=== PATIENT | female | born 2000 | race American Indian/Alaskan Native ===

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

== ENCOUNTER 2018-03-10 20:26 | Emergency (ER) | payer MEDICAID ==
[2018-03-10 20:52] VITALS: BP 146/78
[2018-03-10] MEDS ORDERED: Clindamycin HCl 150 MG Cap PO ONE (21:06)
[2018-03-10] MEDS ORDERED: traMADol 50 MG Tab PO ONE (21:06)
--- NOTE | 2018-03-10 21:11 | EDM.PDOC ---
ED HPI GENERAL MEDICAL PROBLEM - General Chief Complaint: Skin Complaint Stated Complaint: ABSCESS [id number] Time Seen by Provider: 03/10/18 21:07 Source of Information: Reports: Patient History Limitations: Reports: No Limitations - History of Present Illness INITIAL COMMENTS - FREE TEXT/NARRATIVE: c/o 2 days h/o painful abscess left upper arm Left Arm Pain Score (Numeric/FACES): 4 - Related Data Allergies Allergy/AdvReac Type Severity Reaction Status Date / Time No Known Allergies Allergy Verified 03/10/18 21:04 Home Meds: Home Meds . 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 Musculoskeletal History: Reports: None Neurological History: Reports: None Psychiatric History: Reports: None Endocrine/Metabolic History: Reports: None, Obesity/BMI 30+ Hematologic History: Reports: None Immunologic History: Reports: None Oncologic (Cancer) History: Reports: None Dermatologic History: Reports: None - Infectious Disease History Infectious Disease History: Reports: None - Past Surgical History HEENT Surgical History: Reports: None Cardiovascular Surgical History: Reports: None GI Surgical History: Reports: None Female Surgical History: Reports: Oophorectomy Other Female Surgeries/Procedures: left oophorectomy Oncologic Surgical History: Reports: None Social & Family History - Family History Family Medical History: Noncontributory - Tobacco Use Smoking Status *Q: Never Smoker - Caffeine Use Caffeine Use: Reports: Soda - Recreational Drug Use Recreational Drug Use: No ED ROS GENERAL - Review of Systems Review Of Systems: ROS reveals no pertinent complaints other than HPI. ED EXAM, SKIN/RASH Exam: See Below Exam Limited By: No Limitations General Appearance: Alert, WD/WN, Mild Distress, Other (tearful) Ears: Hearing Grossly Normal Throat/Mouth: Normal Voice, No Airway Compromise Head: Atraumatic, Normocephalic Neck: Non-Tender, Full Range of Motion Respiratory/Chest: No Respiratory Distress Cardiovascular: Regular Rate, Rhythm GI/Abdominal: Soft, Non-Tender Extremities: Other (left posterior upper arm 1/4" size tender firm mild local erythema without lymphangitis, NV wnl) Neurological: Alert, Oriented, Normal Cognition, Normal Gait, No Motor/Sensory Deficits Psychiatric: Tearful Skin: Warm, Dry, Normal Color Location, Skin: Upper Extremity, Left Associated features: Tenderness, Swelling, Inflammation. No: Lymphangitis Lymphatic: No Adenopathy Course - Vital Signs Last Recorded V/S: Last Vital Signs Temp 36.8 C 03/10/18 20:50 Pulse 85 03/10/18 20:50 Resp 18 03/10/18 20:50 BP 146/78 H 03/10/18 20:50 Pulse Ox 100 03/10/18 20:50 - Orders/Labs/Meds Orders: Active Orders 24 hr Category Date Time Status Clindamycin HCl [Cleocin] Med 03/10/18 21:06 Once 150 mg PO ONETIME ONE traMADol [Ultram] Med 03/10/18 21:06 Once 50 mg PO ONETIME ONE Medication Orders Clindamycin HCl (Cleocin) 150 mg PO ONETIME ONE Stop: 03/10/18 21:07 Tramadol HCl (Ultram) 50 mg PO ONETIME ONE Stop: 03/10/18 21:07 Meds: Medications Generic Name Dose Route Start Last Admin Trade Name Freq PRN Reason Stop Dose Admin Clindamycin HCl 150 mg 03/10/18 21:06 Cleocin PO 03/10/18 21:07 ONETIME ONE Tramadol HCl 50 mg 03/10/18 21:06 Ultram PO 03/10/18 21:07 ONETIME ONE Departure - Departure Time of Disposition: 21:10 Disposition: Home, Self-Care 01 Condition: Good Clinical Impression: Abscess - Discharge Information Instructions: Skin Abscess, [id number] Additional Instructions: 1) try heat pad to abscess 2) keep it covered 3) follow up at clinic rx given; clindamycin 150mg qid x 40 tramadol 50 mg daily prn x 4 - My Orders Last 24 Hours: My Active Orders 03/10/18 21:06 Clindamycin HCl [Cleocin] 150 mg PO ONETIME ONE traMADol [Ultram] 50 mg PO ONETIME ONE - Assessment/Plan Last 24 Hours: My Active Orders 03/10/18 21:06 Clindamycin HCl [Cleocin] 150 mg PO ONETIME ONE traMADol [Ultram] 50 mg PO ONETIME ONE
== END 2018-03-10 21:20 | disposition home or self-care (01) ==
LOC: DL.ED 20:26
DX: L02.414 Cutaneous abscess of left upper limb (principal)
CPT/HCPCS: 99282; A9270

== ENCOUNTER 2018-12-12 02:51 | Emergency (ER) | payer MEDICAID, OTHER ==
--- NOTE | 2018-12-12 03:46 | EDM.PDOC ---
ED HPI GENERAL MEDICAL PROBLEM - General Chief Complaint: ENT Problem Stated Complaint: COLD [id number] Time Seen by Provider: 12/12/18 03:40 Source of Information: Reports: Patient, RN Notes Reviewed History Limitations: Reports: No Limitations - History of Present Illness INITIAL COMMENTS - FREE TEXT/NARRATIVE: c/o cold sx x one week, some cough, possible fever tonight. No nausea or vomiting No body aches No sore throat. 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 Musculoskeletal History: Reports: None Neurological History: Reports: None Psychiatric History: Reports: None Endocrine/Metabolic History: Reports: None, Obesity/BMI 30+ Hematologic History: Reports: None Immunologic History: Reports: None Oncologic (Cancer) History: Reports: None Dermatologic History: Reports: None - Infectious Disease History Infectious Disease History: Reports: None - Past Surgical History HEENT Surgical History: Reports: None Cardiovascular Surgical History: Reports: None GI Surgical History: Reports: None Female Surgical History: Reports: Oophorectomy Other Female Surgeries/Procedures: left oophorectomy Oncologic Surgical History: Reports: None Social & Family History - Family History Family Medical History: Noncontributory - Caffeine Use Caffeine Use: Reports: Soda ED ROS ENT - Review of Systems Review Of Systems: ROS reveals no pertinent complaints other than HPI. ED EXAM, ENT - Physical Exam Exam: See Below Exam Limited By: No Limitations General Appearance: Alert, No Apparent Distress, Obese Eye Exam: Bilateral Eye: EOMI Ears: Normal External Exam, Hearing Grossly Normal, TM Fluid. No: TM Bulging, TM Erythema Nose: Normal Inspection, Normal Mucousa. No: Nasal Tenderness Mouth/Throat: Normal Inspection, Normal Oropharynx. No: Muffled Voice, Tonsillar Erythema, Uvular Deviation Head: Atraumatic, Normocephalic Neck: Normal Inspection, Supple, Non-Tender, Full Range of Motion. No: Lymphadenopathy (L), Lymphadenopathy (R) Cardiovascular: Normal Peripheral Pulses, Regular Rate, Rhythm GI/Abdominal: Normal Bowel Sounds Neurological: Alert, Oriented, Normal Cognition Psychiatric: Normal Affect Skin: Warm, Dry, Intact, Normal Color Course - Vital Signs Last Recorded V/S: Last Vital Signs Temp 97.5 F 12/12/18 03:31 Pulse 131 H 12/12/18 03:31 Resp 18 12/12/18 03:31 BP 137/93 H 12/12/18 03:31 Pulse Ox 99 12/12/18 03:31 Departure - Departure Time of Disposition: 03:41 Disposition: Home, Self-Care 01 Condition: Good Clinical Impression: URI (upper respiratory infection) Qualifiers: URI type: unspecified viral URI Qualified Code(s): J06.9 - Acute upper respiratory infection, unspecified - Discharge Information *PRESCRIPTION DRUG MONITORING PROGRAM REVIEWED*: No *COPY OF PRESCRIPTION DRUG MONITORING REPORT IN PATIENT RICCO: No Instructions: Viral Respiratory Infection Additional Instructions: alternate tylenol and ibuprofen every 4 hours as needed for fever/discomfort humidification over counter cough and cold medication per label instructions increase fluid intake follow up as needed
== END 2018-12-12 04:02 | disposition home or self-care (01) ==
LOC: DL.ED 02:51
DX: J06.9 Acute upper respiratory infection, unspecified (principal)
CPT/HCPCS: 99282

== ENCOUNTER 2018-12-12 20:17 | Emergency (ER) | payer MEDICAID, OTHER ==
[2018-12-12] MEDS ORDERED: Ibuprofen 600 MG Tab PO ONE (20:28)
[2018-12-12] MEDS ORDERED: Amoxicillin 500 MG Cap PO ONE (20:28)
[2018-12-12 20:29] VITALS: BP 144/85; PULSE 142
--- NOTE | 2018-12-12 20:32 | EDM.PDOC ---
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 Musculoskeletal History: Reports: None Neurological History: Reports: None Psychiatric History: Reports: None Endocrine/Metabolic History: Reports: None, Obesity/BMI 30+ Hematologic History: Reports: None Immunologic History: Reports: None Oncologic (Cancer) History: Reports: None Dermatologic History: Reports: None - Infectious Disease History Infectious Disease History: Reports: None - Past Surgical History HEENT Surgical History: Reports: None Cardiovascular Surgical History: Reports: None GI Surgical History: Reports: None Female Surgical History: Reports: Oophorectomy Other Female Surgeries/Procedures: left oophorectomy Oncologic Surgical History: Reports: None Social & Family History - Family History Family Medical History: Noncontributory - Caffeine Use Caffeine Use: Reports: Soda ED ROS GENERAL - Review of Systems Review Of Systems: ROS reveals no pertinent complaints other than HPI. ED EXAM, GENERAL - Physical Exam Exam: See Below Exam Limited By: No Limitations General Appearance: Alert, WD/WN, No Apparent Distress Ears: Normal External Exam, Normal Canal, Hearing Grossly Normal Ear Exam: Bilateral Ear: TM Dull, TM Red (right >) Throat/Mouth: Normal Voice, No Airway Compromise Head: Atraumatic Neck: Non-Tender, Full Range of Motion Respiratory/Chest: No Respiratory Distress Cardiovascular: Regular Rate, Rhythm GI/Abdominal: Soft, Non-Tender Neurological: Alert, Oriented, Normal Cognition, Normal Gait, No Motor/Sensory Deficits Psychiatric: Normal Affect, Normal Mood Skin Exam: Warm, Dry, Normal Color Lymphatic: No Adenopathy Course - Vital Signs Last Recorded V/S: Last Vital Signs Temp 40.1 C H 12/12/18 20:27 Pulse 142 H 12/12/18 20:27 Resp 18 12/12/18 20:27 BP 144/85 H 12/12/18 20:27 Pulse Ox 97 12/12/18 20:27 - Orders/Labs/Meds Orders: Active Orders 24 hr Category Date Time Status Amoxicillin [Amoxil] Med 12/12/18 20:28 Once 500 mg PO ONETIME ONE Ibuprofen [Motrin] Med 12/12/18 20:28 Once 600 mg PO ONETIME ONE Medication Orders Amoxicillin (Amoxil) 500 mg PO ONETIME ONE Stop: 12/12/18 20:29 Ibuprofen (Motrin) 600 mg PO ONETIME ONE Stop: 12/12/18 20:29 Meds: Medications Generic Name Dose Route Start Last Admin Trade Name Freq PRN Reason Stop Dose Admin Amoxicillin 500 mg 12/12/18 20:28 Amoxil PO 12/12/18 20:29 ONETIME ONE Ibuprofen 600 mg 12/12/18 20:28 Motrin PO 12/12/18 20:29 ONETIME ONE Departure - Departure Time of Disposition: 20:30 Disposition: Home, Self-Care 01 Condition: Good Clinical Impression: Bilateral otitis media with effusion - Discharge Information Instructions: Otitis Media With Effusion, Pediatric Additional Instructions: 1) try decongestant from [facility] 2) follow up at clinic rx given; amox 250mg tid x 30 - My Orders Last 24 Hours: My Active Orders 12/12/18 20:28 Amoxicillin [Amoxil] 500 mg PO ONETIME ONE Ibuprofen [Motrin] 600 mg PO ONETIME ONE - Assessment/Plan Last 24 Hours: My Active Orders 12/12/18 20:28 Amoxicillin [Amoxil] 500 mg PO ONETIME ONE Ibuprofen [Motrin] 600 mg PO ONETIME ONE
== END 2018-12-12 20:39 | disposition home or self-care (01) ==
LOC: DL.ED 20:17
DX: H65.93 Unspecified nonsuppurative otitis media, bilateral (principal); J06.9 Acute upper respiratory infection, unspecified
CPT/HCPCS: 99282; 99283; A9270

== ENCOUNTER 2018-12-14 14:59 | Emergency (ER) | payer MEDICAID, OTHER | END 2018-12-14 15:05 | LOC: DL.ED 14:59 | DX: Z53.21 Procedure and treatment not carried out due to patient leaving prior to being seen by health care provider (principal) ==

== ENCOUNTER 2019-09-16 14:39 | Emergency (ER) | payer MEDICAID, OTHER | END 2019-09-16 16:02 | disposition left against medical advice (07) | LOC: DL.ED 14:39 | DX: Z53.21 Procedure and treatment not carried out due to patient leaving prior to being seen by health care provider (principal) ==

== ENCOUNTER 2020-05-11 08:15 | Inpatient (IN) | payer MEDICAID ==
[2020-05-11] MEDS ORDERED: Sodium Chloride 0.9% 10 ML Syringe FLUSH PRN (08:18)
[2020-05-11] MEDS ORDERED: Acetaminophen 325 MG Tab PO PRN ×2 (08:18→17:57)
[2020-05-11] MEDS ORDERED: Oxytocin/Normal Saline 30 UNIT/500 ML BAG IV SCH ×2 (08:30→18:00)
[2020-05-11] MEDS ORDERED: Lactated Ringers 1,000 ML IV SCH (08:30)
[2020-05-11] MEDS: Misoprostol 25 MCG (1/4 of 100 MCG) Tab VAG PRN ×3 (09:27→20:25)
--- NOTE | 2020-05-11 10:44 | PCM.LDHP ---
L&D History of Present Illness - General Date of Service: 05/11/20 Admit Problem/Dx: Patient Status Order with Admit Dx/Problem 05/11/20 08:19 Patient Status [ADT] Routine Admission Diagnosis/Problem Admission Diagnosis/Problem Gestational diabetes mellitus - History of Present Illness Introduction:: Patient is a at 39w0d who is here for induction of labor secondary to gestational diabetes. She has been on 1000 mg Metformin BID. Her blood sugars have been well controlled throughout . Her growth ultrasounds have been appropriate. She is GBS positive. has otherwise been uncomplicated. She states that bay has been active. Denies contractions, vaginal bleeding, leakage of fluids. She has noticed some increased edema in her lower extremities but denies headache, vision changes, abdominal pain. She only has one ovary (right). She had a left sided ovarian torsion and ovary was removed. No drug, alcohol, or tobacco use during the . 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: Other OB/BYN History: Left ovarian torsion and oophorectomy Musculoskeletal History: Reports: None Neurological History: Reports: None Psychiatric History: Reports: None Endocrine/Metabolic History: Reports: None, Obesity/BMI 30+ Hematologic History: Reports: Anemia Immunologic History: Reports: None Oncologic (Cancer) History: Reports: None Dermatologic History: Reports: None - Infectious Disease History Infectious Disease History: Reports: None - Past Surgical History HEENT Surgical History: Reports: Adenoidectomy, Tonsillectomy Cardiovascular Surgical History: Reports: None GI Surgical History: Reports: None Female Surgical History: Reports: Oophorectomy Other Female Surgeries/Procedures: left oophorectomy Oncologic Surgical History: Reports: None Social & Family History - Family History Family Medical History: Noncontributory Cardiac: Reports: Hypertension Endocrine/Metabolic: Reports: Diabetes, type II - Tobacco Use Smoking Status *Q: Never Smoker Second Hand Smoke Exposure: No - Caffeine Use Caffeine Use: Reports: Soda - Alcohol Use Alcohol Use History: No - Recreational Drug Use Recreational Drug Use: No H&P Review of Systems - Review of Systems: Review Of Systems: See Below General: Denies: Fever, Chills, Weakness HEENT: Denies: Headaches, Visual Changes Pulmonary: Denies: Shortness of Breath, Cough Cardiovascular: Reports: Edema. Denies: Chest Pain, Lightheadedness Gastrointestinal: Denies: Abdominal Pain, Nausea, Vomiting Skin: Denies: Rash Neurological: Denies: Dizziness, Headache, Numbness Hematologic/Lymphatic: Reports: Anemia L&D Exam - Exam Exam: See Below - Vital Signs Vital Signs: Last Vital Signs Temp 98.4 F 05/11/20 09:00 Pulse 88 05/11/20 09:00 Resp 18 05/11/20 09:00 BP 132/70 05/11/20 09:00 Pulse Ox Weight: 309 lb - OB Specific Contraction Duration (sec): 40-50 Contraction Frequency (min): occ. Contraction Intensity: Mild Movement: Active Heart Tones: Present Heart Tones per Min: 135 Heart Rate (FHR) Variability: Moderate (6-25 bmp) Presentation: Vertex - Phillips Score Phillips Score Cervix Position: Anterior Phillips Score Consistency: Firm Phillips Score Dilation: Closed Phillips Score Infant's Station: -3 - Exam General: Alert, Oriented HEENT: Conjunctiva Clear, Pupils Equal Neck: Supple, Trachea Midline Lungs: Clear to Auscultation, Normal Respiratory Effort Cardiovascular: Regular Rate, Regular Rhythm, Normal S1, Normal S2 GI/Abdominal Exam: Soft, Non-Tender, No Distention Extremities: Non-Tender, Pedal Edema (2+) Skin: Warm, Dry, Intact Neurological: Reflexes Equal Bilateral. No: Focal Deficit Psychiatric: Normal Affect, Normal Mood - Patient Data Lab Results Last 24 hrs: Laboratory Results - last 24 hr 05/11/20 05/11/20 Range/Units 08:30 09:10 WBC 9.7 (5.0-10.0) 10^3/uL RBC 4.36 (4.2-5.4) 10^6/uL Hgb 12.2 (12.0-16.0) g/dL Hct 36.0 L (37.0-47.0) % MCV 82.6 (80-100) fL MCH 28.0 (27.0-34.0) pg MCHC 33.9 (33.0-35.0) g/dL Plt Count 244 (150-450) 10^3/uL SARS CoV-2 RNA Rapid AMY Negative (NEGATIVE) Result Diagrams: 05/11/20 09:10 - Problem List (1) Gestational diabetes SNOMED Code(s): 59183701 ICD Code: O24.419 - GESTATIONAL DIABETES MELLITUS IN , UNSP CONTROL Status: Acute Current Visit: Yes (2) Rubella non-immune status, antepartum SNOMED Code(s): 095374423 ICD Code: O99.89 - OTH DISEASES AND CONDITIONS COMPL PREG/CHLDBRTH; Z28.3 - UNDERIMMUNIZATION STATUS Status: Acute Current Visit: Yes (3) Anemia affecting SNOMED Code(s): 60490033 ICD Code: O99.019 - ANEMIA COMPLICATING , UNSPECIFIED TRIMESTER Status: Acute Current Visit: Yes (4) Obesity affecting SNOMED Code(s): 471951891691, 476016510476 ICD Code: O99.210 - OBESITY COMPLICATING , UNSPECIFIED TRIMESTER Status: Acute Current Visit: Yes (5) Positive GBS test SNOMED Code(s): 816992354, 496901955 ICD Code: B95.1 - STREPTOCOCCUS, GROUP B, CAUSING DISEASES CLASSD ELSWHR Status: Acute Current Visit: Yes (6) Primigravida SNOMED Code(s): 678587135 ICD Code: Z34.00 - ENCNTR FOR SUPRVSN OF NORMAL FIRST , UNSP TRIMESTER Status: Acute Current Visit: Yes Problem List Initiated/Reviewed/Updated: Yes Orders Last 24hrs: Active Orders 24 hr Category Date Time Status Patient Status [ADT] Routine ADT 05/11/20 08:19 Active Blood Glucose Check, Bedside [RC] ONETIME Care 05/11/20 08:21 Active Notify Provider Vital Signs OB [RC] ASDIRECTED Care 05/11/20 08:19 Active Notify Provider [RC] PRN Care 05/11/20 08:19 Active Peripheral IV Care [RC] 06,14, Care 05/11/20 08:19 Active Up ad Shanice [RC] PER UNIT ROUTINE Care 05/11/20 08:19 Active Vaginal Exam [RC] PRN Care 05/11/20 08:19 Active Vital Signs [RC] PER UNIT ROUTINE Care 05/11/20 08:19 Active Consistent Carbohydrate Diet [DIET] Diet 05/11/20 Breakfast Active TREPONEMA PALLIDUM ANTIBODIES [REF] Routine Lab 05/11/20 09:10 Received Acetaminophen [TylenoL] Med 05/11/20 08:18 Active 650 mg PO Q4H PRN Lactated Ringers [Ringers, Lactated] 1,000 ml Med 05/11/20 08:30 Active IV ASDIRECTED Oxytocin/Normal Saline [Pitocin in NS 30 UNIT/500 ML] Med 05/11/20 08:30 Active 30 unit in 500 ml IV TITRATE Sodium Chloride 0.9% [Saline Flush] Med 05/11/20 08:18 Active 10 ml FLUSH ASDIRECTED PRN miSOPROStoL [Cytotec] Med 05/11/20 08:18 Active 25 mcg VAG Q4H PRN Peripheral IV Insertion Adult [OM.PC] Urgent Oth 05/11/20 08:19 Ordered Medication Orders Acetaminophen (Tylenol) 650 mg PO Q4H PRN PRN Reason: Pain/Fever Lactated Ringer's (Ringers, Lactated) 1,000 mls @ 999 mls/hr IV ASDIRECTED JESI Oxytocin/Sodium Chloride (Pitocin In Ns 30 Unit/500 Ml) 30 unit in 500 mls @ 2 mls/hr IV TITRATE JESI; Protocol Misoprostol (Cytotec) 25 mcg VAG Q4H PRN PRN Reason: cervical ripening Last Admin: 05/11/20 09:27 Dose: 25 mcg Documented by: ERICROX Sodium Chloride (Saline Flush) 10 ml FLUSH ASDIRECTED PRN PRN Reason: Keep Vein Open Assessment/Plan Comment:: Admit for induction of labor. Risks/benefits of Cytotec induction discussed. Will proceed with up to 8 doses if appropriate. GBS positive, will receive penicillin. Will start when it appears cervix is changing. Blood sugar checks fasting and 2 hour post prandial while receiving cytotec. Patient may have hydroxyzine at night, tylenol for cramping. Corry Macias MD
[2020-05-11] MEDS ORDERED: Ondansetron 4 MG/2 ML SDV IVPUSH PRN (17:57)
[2020-05-11] MEDS ORDERED: Lidocaine 1% 30 ML SDV INJECT PRN (17:57)
[2020-05-11] MEDS ORDERED: Tranexamic Acid 1,000 MG in Sodium Chloride 0.9% 100 ML IV PRN (17:57)
[2020-05-11] MEDS ORDERED: Misoprostol 400 MCG (4 X 100 MCG TAB) RECTAL PRN (17:57)
[2020-05-11] MEDS ORDERED: Penicillin G Potassium 5 MILLUNITS in Sodium Chloride 0.9% 100 ML IV ONE ×4 (17:57)
[2020-05-11] MEDS ORDERED: Methylergonovine 0.2 MG/1 ML Amp IM PRN (17:57)
[2020-05-11] MEDS ORDERED: Carboprost Tromethamine 250 MCG/1 ML Amp IM PRN (17:57)
[2020-05-11] MEDS ORDERED: Penicillin G Potassium 3 MILLUNITS in Sodium Chloride 0.9% 100 ML IV SCH (18:00)
[2020-05-11] MEDS: Lactated Ringers 1,000 ML IV SCH (18:28)
[2020-05-11] MEDS: hydrOXYzine HCl 25 MG Tab PO PRN (21:00)
[2020-05-11] MEDS: Penicillin G Potassium 3 MILLUNITS in Sodium Chloride 0.9% 100 ML IV SCH (22:21)
[2020-05-12] MEDS: Misoprostol 25 MCG (1/4 of 100 MCG) Tab VAG PRN ×4 (00:38→12:40)
[2020-05-12] MEDS: Penicillin G Potassium 3 MILLUNITS in Sodium Chloride 0.9% 100 ML IV SCH ×6 (02:16→21:40)
[2020-05-12] MEDS: Lactated Ringers 1,000 ML IV SCH ×3 (02:17→23:30)
--- NOTE | 2020-05-12 15:50 | PCM.SN.2 ---
- Free Text/Narrative Note: 05/12/20 Patient continues to receive cytotec. Total of 7 doses now given. She has been feeling cramping but still comfortable. Baby has had cat 1 strip throughout the process. Will plan to start pitocin after 7th dose along with penicillin for GBS positive status. Pain options have been discussed. Continue intra cares. Blood sugars have been well controlled. Will change to NPO once pitocin is started. Corry Macias MD
[2020-05-12] MEDS ORDERED: Naloxone 2 MG/2 ML Syringe IVPUSH PRN (20:20)
[2020-05-12] MEDS ORDERED: ePHEDrine 50 MG/ML SDV IVPUSH PRN (20:20)
[2020-05-12] MEDS ORDERED: Lactated Ringers 500 ML IV SCH ×2 (20:30)
[2020-05-12] MEDS ORDERED: Sodium Chloride 0.9% 1,000 ML IV SCH (20:30)
[2020-05-12] MEDS: hydrOXYzine HCl 25 MG Tab PO PRN (21:38)
[2020-05-12] MEDS: Ondansetron 4 MG/2 ML SDV IVPUSH PRN (22:26)
[2020-05-12] MEDS ORDERED: fentaNYL 100 MCG/2 ML SDV ONE (22:56)
[2020-05-12] MEDS ORDERED: EPINEPHrine 1 MG/1 ML Amp ONE (22:57)
--- NOTE | 2020-05-12 23:29 | PCM.PRNOTE ---
- Free Text/Narrative Note: Requested to provide analgesia to full term patient in severe pain. Upon entering the room, patient is sitting on edge of bed complaining of severe abdominal/pelvic pain and discomfort. Procedure was discussed with patient including adverse outcomes and expectations. Pt consented to analgesia, SAB/IT. Pt placed into a proper sitting position. Landmarks for SAB/IT were identified and marked. Hands were washed and appropriate PPE was applied. Back was prepped with betadine x3. A sterile, transparent, fenestrated drape was applied. Excess betadine was removed. Using 3 mL of a 1% lidocaine solution, a skin wheel was placed at the L3/L4 interspace. A 24 ga (4 inch) Pencan spinal needle was inserted until positive for CSF. Negative for heme or paresthesias. Injected fentanyl 20 mcg, sufentanil 25 mcg, and 7.5 mg of a 0.75% bupivacaine solution with an epi wash. Pt was placed left lateral position for approximately 20 minutes. There were zero complications or adverse outcomes. Will continue to monitor. Procedure Date & Time: 05-12-20 [id number]
[2020-05-12] MEDS: Promethazine 25 MG/ML SDV IM PRN (23:49)
[2020-05-13] MEDS ORDERED: EPINEPHrine 1 MG/1 ML Amp ONE ×3 (00:01→03:22)
[2020-05-13] MEDS ORDERED: fentaNYL 100 MCG/2 ML SDV ITHECAL ONE ×2 (00:01→03:20)
[2020-05-13] MEDS: Penicillin G Potassium 3 MILLUNITS in Sodium Chloride 0.9% 100 ML IV SCH ×3 (01:40→16:30)
[2020-05-13] MEDS: Lactated Ringers 1,000 ML IV SCH ×3 (03:04→11:30)
[2020-05-13] MEDS: Ondansetron 4 MG/2 ML SDV IVPUSH PRN (03:10)
[2020-05-13] MEDS ORDERED: fentaNYL 100 MCG/2 ML SDV ONE ×2 (03:22→07:30)
--- NOTE | 2020-05-13 03:48 | PCM.PRNOTE ---
- Free Text/Narrative Note: Requested to provide analgesia to full term patient in severe pain. Upon entering the room, patient is sitting on edge of bed complaining of severe abdominal/pelvic pain and discomfort. Procedure was discussed with patient including adverse outcomes and expectations. Pt consented to analgesia, SAB/IT. Pt placed into a proper sitting position. Landmarks for SAB/IT were identified and marked. Hands were washed and appropriate PPE was applied. Back was prepped with betadine x3. A sterile, transparent, fenestrated drape was applied. Excess betadine was removed. Using 3 mL of a 1% lidocaine solution, a skin wheel was placed at the L3/L4 interspace. A 24 ga (4 inch) Pencan spinal needle was inserted until positive for CSF. Negative for heme or paresthesias. Injected fentanyl 25 mcg and 7.5 mg of a 0.75% bupivacaine solution with an epi wash. Pt was placed left lateral position for approximately 20 minutes. There were zero complications or adverse outcomes. Will continue to monitor. Procedure Date & Time:
[2020-05-13] MEDS: Promethazine 25 MG/ML SDV IM PRN (04:51)
[2020-05-13] MEDS ORDERED: fentaNYL 100 MCG/2 ML SDV IVPUSH ONE (07:23)
[2020-05-13] MEDS ORDERED: Oxytocin/Normal Saline 60 UNIT/1,000 ML BAG ONE (08:42)
[2020-05-13] MEDS ORDERED: Methylergonovine 0.2 MG/1 ML Amp IM PRN (08:44)
[2020-05-13] MEDS ORDERED: Lactated Ringers 1,000 ML IV SCH (08:45)
[2020-05-13] MEDS ORDERED: diphenhydrAMINE 50 MG/ML SDV IVPUSH PRN (09:00)
[2020-05-13] MEDS ORDERED: Acetaminophen/oxyCODONE 325-5 MG Tab PO PRN ×2 (09:00)
[2020-05-13] MEDS ORDERED: CEFAZOLIN IV ONE (09:00)
[2020-05-13] MEDS ORDERED: Docusate Sodium 100 MG Cap PO PRN (09:00)
[2020-05-13] MEDS ORDERED: Citric Acid/Sodium Citrate Solution 30 ML Cup PO ONE (09:00)
[2020-05-13] MEDS ORDERED: Ondansetron 4 MG/2 ML SDV IV ONE (09:30)
[2020-05-13] MEDS ORDERED: Ketorolac 30 MG/ML SDV IVPUSH ONE (09:30)
[2020-05-13] MEDS ORDERED: Misoprostol 400 MCG (4 X 100 MCG TAB) ONE ×2 (09:32→10:38)
--- NOTE | 2020-05-13 12:17 | OR ---
DATE: 05/13/2020 PREOPERATIVE DIAGNOSES: 1. Intrauterine at 39 and 2/7 weeks, confirmed with 21 and 5/7 weeks ultrasound. 2. No descent with pushing, suspect arrest of descent. 3. Marked caput. 4. Cephalopelvic disproportion suspected. 5. Refusal to push in the second stage of labor after approximately 40 minutes of pushing. 6. Preeclampsia potentially nearing severe features. 7. Requests for primary low transverse . 8. Gestational diabetes mellitus. 9. GBS positive. 10.G1, P0. 11.Previous salpingo-oophorectomy with Pfannenstiel-type incision. POSTOPERATIVE DIAGNOSES: 1. Intrauterine at 39 and 2/7 weeks, confirmed with 21 and 5/7 weeks ultrasound-delivered. 2. No descent with pushing, suspect arrest of descent. 3. Marked caput. 4. Cephalopelvic disproportion suspected. 5. Refusal to push in the second stage of labor after approximately 40 minutes of pushing. 6. Preeclampsia potentially nearing severe features. 7. Requests for primary low transverse . 8. Gestational diabetes mellitus. 9. GBS positive. 10.G1, P0. 11.Previous salpingo-oophorectomy with Pfannenstiel-type incision. 12.Uterine atony, requiring TXA and 800 mcg of Cytotec rectally. PROCEDURE PERFORMED: Primary low transverse with 2-layer uterine closure. INSTRUCTOR DANCING: Corry Macias MD, and Drew Smart MS-4. ANESTHESIA: Spinal. ESTIMATED BLOOD LOSS: 600 mL. IV FLUIDS: 1000 mL. URINE OUTPUT: 50 mL and appearing concentrated. START: 09:17. UTERINE INCISION: 09:23. DELIVERY: 09:24. STOP: 09:53. FINDINGS: Male, score 8 and 9, weight pending. PROCEDURE IN DETAIL: After proper consent was obtained, the patient was brought to the operating room, where spinal anesthetic was administered. Farris was placed in preop under sterile conditions. Abdomen was prepped and draped in normal sterile fashion. The patient was placed in supine position with left lateral tilt. A skin incision was then made over lower abdomen in transverse Pfannenstiel-type fashion over previous scar. This was carried down to the fascia and scored in the midline. Subcutaneous tissue was raked laterally with Webster retractor and fascial incision was extended in transverse fashion using curved Pabon's. Daria clamps x2 were used to grasp the superior aspect of fascia and rectus muscles dissected from the fascia using sharp and blunt technique. In a similar fashion, Daria clamps x2 were used to grasp the inferior portion of the incision, and rectus muscles and pyramidalis muscles were dissected using blunt technique. Rectus muscles were in the midline with blunt technique. Abdominal cavity was entered in blunt technique. Incision was extended superiorly and inferiorly with blunt technique. Guillermo O large retractor was then introduced and used. Vesicouterine peritoneum was identified, incised in transverse fashion with Metzenbaum scissors and a bladder flap was made digitally. A curvilinear incision was made on the lower uterine segment at 0923 hours. Clear fluid returned. Uterine incision was then extended in transverse fashion using blunt technique. vertex was then brought up from the pelvis up to the incision and there was difficulty at this point in time delivering the vertex with fundal pressure, therefore Kiwi vacuum was called for, and by the time of working Kiwi vacuum was brought up to the table, vertex was delivered followed by rest of the infant without difficulty. Mouth and nares were suctioned. Cord was doubly clamped and cut, and infant was brought over to the team. Then, approximately 10 mL of cord blood was obtained for labs. Placenta then delivered with gentle cord traction and fundal massage. Uterine cavity was then cleared of all blood clots and debris with lap sponge. Martin clamps were used to grasp the uterine incision, and this was closed in a running locked fashion and tied at lateral margins with 1-0 Vicryl. Uterine atony was noted. TXA was called for and 800 mcg of Cytotec was called for, and the Cytotec was given rectally and TXA was given via SHIPPING WEIGHER. Second imbricating layer was applied and tied at lateral margins with 1-0 Vicryl. Minimal bleeding in midline. Figure-eight stitch was applied and hemostasis was reassured. First inspection of the uterine incision revealed hemostasis. Guillermo O retractor was then removed, and paracolic gutters were then cleared of all blood clots and debris with lap sponge. Anterior cul-de-sac was irrigated copiously, and all blood clots and debris removed. Second and final inspection of the uterine incision and anterior cul-de-sac revealed hemostasis. Rectus muscles were then reapproximated in the midline with [id number] stitch using 1-0 Vicryl. Subfascial tissues were found to be hemostatic. Fascia was closed in a running fashion and tied at lateral margins with 0 looped PDS. Subcutaneous tissue was irrigated copiously. Hemostasis was reassured. Skin was reapproximated with medium eric. Sterile Aquacel dressing was applied. Uterine fundus was firm and massaged at the conclusion of the case -1 below umbilicus. No immediate complications were noted. Sponge, lap, and needle counts were correct. The patient received 3 g of Ancef preoperatively, Pitocin per protocol, and will receive Toradol at the conclusion of the case for pain control. Mother and are currently stable at time of dictation. [facility] /[id number]
--- NOTE | 2020-05-13 12:21 | CONS ---
SERVICE DATE: 05/13/2020 REQUESTING: Corry Macias MD. REASON FOR CONSULTATION: How do I further evaluate in this patient who was found to be in the second stage of labor with nearing arrest of descent with potential for severe preeclampsia developing with CPD suspected, GBS positive, prolonged induction of labor, and has gestational diabetes mellitus, and refusal to push requesting a ? HISTORY OF PRESENT ILLNESS: This is a G1, P0 at 39-2/7 weeks confirmed with 21- 5/7 week ultrasound, who was admitted for induction of labor at 39 weeks due to her gestational diabetes mellitus, requiring metformin. During this time period, she did receive 7 doses of Cytotec, maximum dose of Pitocin at 20 milliunits per minute since 3 a.m. on date of consult with time being approximately 8:45 now and did have some slow dilation and then was found to be complete and has been pushing for the last approximately 40 minutes with above concerns. The patient is refusing to push. Did discuss options and she is requesting that a primary low transverse be done and we are concerned with CPD with marked caput and no descent with pushing. Records called for, reviewed as below, and supplemented by patient history. [facility]: ABO blood type O positive, negative antibody. Rubella equivocal. RPR was 1:1 titer, but followup Treponemal antibody test was nonreactive. Negative hepatitis B surface antigen. Negative hep C, HIV, GC, and chlamydia with a 1-hour GTT of 212. MEDICATIONS: 1. Metformin 1000 mg b.i.d. 2. vitamins. 3. Iron sulfate 325, supposed to be taken b.i.d. ALLERGIES: The patient denies any allergies. PAST MEDICAL/PAST SURGICAL HISTORY: Remarkable for asthma in the past. Left lower quadrant pain in 2010 with an ovarian cyst with suspected rupture and had 1 ovary removed. She had a wound dehiscence related to the surgery. She had a torsion of the left ovary and the left ovary is the one that has been removed. PAST SURGICAL HISTORY: Tonsil and adenoidectomy on 09/09/2010, laparoscopic surgery on 07/06/2011 with left salpingo-oophorectomy. FAMILY HISTORY: Cousin has a cancer. Diabetes in father and paternal grandmother. Father with hypertension. SOCIAL HISTORY: The patient lives with mother with possible potential apartment in [place] with Addison Pagan, who is the father of baby, and she presents with him today. It is their first child together. She is not currently working. She denies any alcohol, tobacco, or drug use. Drug screen was negative at [facility] as well. REVIEW OF SYSTEMS: Quickly obtained and otherwise felt to be contributory for the above with back pain with the contractions. She has had some decreased urine output. Farris catheter has been placed, and we will be following closely in regard to this. OBJECTIVE: Vital Signs: Blood pressure 151/73, heart rate 105. The patient feels afebrile. Appearance: Female appears her stated age, breathing through contractions and crying through them and yelling with them as well with back pain, with good pushing effort when she does push. Head: Atraumatic. EOMs intact. PERRLA. No scleral icterus. No obvious otorhinorrhea. Mucous membranes moist. Neck: No obvious tenderness. Lungs: Distant, but clear to auscultation bilaterally due to habitus. Heart: S1, S2. Regular rate and rhythm. Abdomen: Obese, gravid. Lavon's indeterminate. Nontender, nondistended. Bowel sounds positive. No other organomegaly, pulsatile masses, or obvious hernias. : Normal external female genitalia. Normal position and presentation of urethra. Vaginal exam reveals her to be complete with marked caput of over 3 cm with room posteriorly behind the head and at a 0 to +1 station with no descent with pushing. Extremities: 1 to 2+ pitting edema to the proximal tibia. Deep tendon reflexes, unable to determine because she flexes her legs with her discomfort. LABORATORY DATA: White cell count 17.5, hemoglobin 12.3, platelets 230. Preeclampsia labs were done and protein creatinine ratio was notably 935.3. She also did have some urine output, 250 mL over approximately a 6-hour period. ASSESSMENT: 1. Intrauterine at 39-2/7 weeks confirmed with 21-5/7 week ultrasound. 2. Preeclampsia with potential for severe features noted and will need to follow clinically and closely. Plan on delivery in the immediate future. 3. Marked caput. 4. No descent with pushing, nearing arrest of descent. 5. Cephalopelvic disproportion suspected. 6. Group B Streptococcus positive. 7. Gestational diabetes mellitus. 8. Refusal to push in the second stage of labor after approximately 40 minutes of pushing. 9. Requests for primary low transverse section. 10.G1, P0. PLAN: Due to concerns with the preeclampsia, gestational diabetes mellitus, marked caput, arrest of descent, and CPD suspected, did discuss with the patient options and shared decision was made to proceed with primary low transverse C- section. She is requesting this now. I did discuss the risks, benefits, alternatives, and complications of , including, but not limited to, infection, bleeding, damage to internal organs such as bowel, bladder, tubes, uterus, ovaries, and sometimes fetus rarely needing a blood transfusion or further surgery, and rarer maternal or . She understands and agrees and wishes to proceed. Verbal and written consent were obtained, and questions were answered. Please see orders for further details. When evaluating the heart rate, heart rate has been in the 120s. There has been some reassuring and reactive strip noted around 7:30, the last strip that I have here, and most recently heart tones in the second stage of labor were around the 140s. We will proceed to the OR as soon as crew is ready and available. The patient understands, agrees to above treatment plan. I did discuss with her risks potentially for wound dehiscence as well as the risk factors including her obesity and we will proceed to the OR as soon as crew is ready and available. [facility] /[id number]
[2020-05-13 12:26] LABS: ANION GAP 15.3 mEq/L (7-13); CHLORIDE,CL 108 mmol/L (98-107); SODIUM,NA 139 mmol/L (136-145)
[2020-05-13] MEDS ORDERED: Simethicone 80 MG Tab.Chew PO SCH (13:00)
[2020-05-13 14:33] VITALS: BP 124/68; PULSE 102
[2020-05-13] MEDS ORDERED: Ketorolac 30 MG/ML SDV IVPUSH SCH (15:30)
--- NOTE | 2020-05-13 16:04 | PCM.PNPP ---
- General Info Date of Service: 05/13/20 Subjective Update: Patient is 1 hour s/p primary . She was admitted for induction of labor at 39w0d for gestational diabetes. She received 7 doses of Cytotec. Pitocin was started and she did receive 2 intrathecals. Both failed to give good pain relief beyond 3 hours. She progressed to 7 cm but stalled until 7:30 AM. She had been on max of pitocin since 2300 the night before. She started having low urine output throughout labor with elevated blood pressures into the 150s-160s/90s. PIH labs were drawn and her urine PCR was found to be 0.9. She was diagnosed with preeclampsia with severe features. Around 7:30 AM, she was noted to be complete and encouraged to push. She did push for about 40 minutes but then refused to push any further. EFM continued to show cat 1 strip. Due to body habitus and failure to get adequate visualization, Dr. Egan was called into the delivery room. Infant felt to be OP and still at -1 to 0 station with severe caput and moulding. It required 3 sets of hands to adequately visualize head and it was deemed unsafe to proceed with vacuum assisted delivery. Patient in significant amount of pain and again refused to push and requested . Due to severe preeclampsia and inadequate urine output, Dr. Egan discussed procedure with her and she decided to proceed with primary . Please see op report for further details. Prior to the procedure, she received almost 7 liters of fluid. She received another liter during the procedure. Her UOP was about 250 mls overnight and only 50 mls during the procedure. Following the c- section, she was noted to be passing large clots with a steady slow flow with fundal massage. She was given 800 mcg rectal Cytotec X 2, 1000 mg TXA X 2, Hemabate, and Methergine. She continued to pass 2 softball size clots. Fundal massage revealed a firm uterus. She still had very little urine output so juarez was repositioned, flushed and then replaced twice. She had a total of 125 mls out following surgery. Post hemorrhage was estimated to be 2000 mld and did resolve after medications given. Her blood pressures continued to drop and patient did become unresponsive at one point. Blood pressures were 70s/40s to 80s/60s with no improvement with 2 fluid boluses. She was crossmatched and 1 unit of blood was transfusing before blood pressures started to stabilize. While she was getting stabilized, decision was made to transfer her to higher level of care in the event she had internal bleeding or decompensated again. As she was hypotensive and not responding to fluids, the hospitalist contract clerk automobile was notified with request to help if she needed pressors. [facility], and [place] were all on diversion for critical care access so no transfer location was found initially. Once stabilized, Dr. Hernandez at [facility] in [place], [place] did accept transfer. Transportation was arranged. A second unit of blood was also ordered. She was stable when discharged to [place]. - Review of Systems General: Reports: Weakness, Fatigue Pulmonary: Reports: Shortness of Breath Cardiovascular: Reports: Edema, Lightheadedness. Denies: Chest Pain Gastrointestinal: Reports: Abdominal Pain, Nausea, Vomiting Skin: Reports: Pallor, Dryness Neurological: Reports: Dizziness, Numbness, Paresthesia, Tingling, Weakness - Patient Data Vital Signs - Most Recent: Last Vital Signs Temp 96.6 F L 05/13/20 12:55 Pulse 102 H 05/13/20 12:55 Resp 20 05/13/20 12:34 BP 124/68 05/13/20 12:55 Pulse Ox 100 05/13/20 12:29 Weight - Most Recent: 309 lb I&O - Last 24 Hours: Intake & Output 05/13/20 05/13/20 05/13/20 06:59 14:59 22:59 Intake Total 2100 1170 Output Total 250 50 Balance 1850 1120 Lab Results - Last 24 Hours: Laboratory Results - last 24 hr 05/12/20 05/13/20 05/13/20 Range/Units 19:26 06:00 06:50 WBC 17.5 H (5.0-10.0) 10^3/uL RBC 4.39 (4.2-5.4) 10^6/uL Hgb 12.3 (12.0-16.0) g/dL Hct 36.4 L (37.0-47.0) % MCV 82.9 (80-100) fL MCH 28.0 (27.0-34.0) pg MCHC 33.8 (33.0-35.0) g/dL Plt Count 230 (150-450) 10^3/uL Sodium (136-145) mmol/L Potassium (3.5-5.1) mmol/L Chloride (98-107) mmol/L Carbon Dioxide (21-32) mmol/L Anion Gap (7-13) mEq/L BUN (7-18) mg/dL Creatinine (0.55-1.02) mg/dL Est Cr Clr Drug Dosing mL/min Estimated GFR (MDRD) Glucose (74-99) mg/dL POC Glucose 90 87 (70-105) mg/dl Uric Acid (2.6-6.0) mg/dL Calcium (8.5-10.1) mg/dL AST (15-37) U/L ALT (14-59) U/L Lactate Dehydrogenase (81-234) U/L Ur Random Creatinine (No establ ref range) mg/dL U Random Total Protein (0.0-11.9) mg/dL Protein/Creatinin Ratio (<150.0) mg/g Blood Type Gel Antibody Screen Crossmatch 05/13/20 05/13/20 05/13/20 Range/Units 06:50 06:50 06:50 WBC (5.0-10.0) 10^3/uL RBC (4.2-5.4) 10^6/uL Hgb (12.0-16.0) g/dL Hct (37.0-47.0) % MCV (80-100) fL MCH (27.0-34.0) pg MCHC (33.0-35.0) g/dL Plt Count (150-450) 10^3/uL Sodium (136-145) mmol/L Potassium (3.5-5.1) mmol/L Chloride (98-107) mmol/L Carbon Dioxide (21-32) mmol/L Anion Gap (7-13) mEq/L BUN 13 (7-18) mg/dL Creatinine 0.81 (0.55-1.02) mg/dL Est Cr Clr Drug Dosing 94.07 mL/min Estimated GFR (MDRD) > 60 Glucose (74-99) mg/dL POC Glucose (70-105) mg/dl Uric Acid 5.4 (2.6-6.0) mg/dL Calcium (8.5-10.1) mg/dL AST 21 (15-37) U/L ALT 21 (14-59) U/L Lactate Dehydrogenase 168 (81-234) U/L Ur Random Creatinine 144.34 (No establ ref range) mg/dL U Random Total Protein 135.0 H (0.0-11.9) mg/dL Protein/Creatinin Ratio 935.3 H (<150.0) mg/g Blood Type O POSITIVE Gel Antibody Screen Negative Crossmatch See Detail 05/13/20 05/13/20 Range/Units 12:05 12:05 WBC 25.5 H* (5.0-10.0) 10^3/uL RBC 3.32 L (4.2-5.4) 10^6/uL Hgb 9.5 L D (12.0-16.0) g/dL Hct 28.5 L (37.0-47.0) % MCV 85.8 (80-100) fL MCH 28.6 (27.0-34.0) pg MCHC 33.3 (33.0-35.0) g/dL Plt Count 300 (150-450) 10^3/uL Sodium 139 (136-145) mmol/L Potassium 4.3 (3.5-5.1) mmol/L Chloride 108 H (98-107) mmol/L Carbon Dioxide 20 L (21-32) mmol/L Anion Gap 15.3 H (7-13) mEq/L BUN 15 (7-18) mg/dL Creatinine 1.06 H (0.55-1.02) mg/dL Est Cr Clr Drug Dosing 71.89 mL/min Estimated GFR (MDRD) > 60 Glucose 149 H (74-99) mg/dL POC Glucose (70-105) mg/dl Uric Acid (2.6-6.0) mg/dL Calcium 7.7 L (8.5-10.1) mg/dL AST (15-37) U/L ALT (14-59) U/L Lactate Dehydrogenase (81-234) U/L Ur Random Creatinine (No establ ref range) mg/dL U Random Total Protein (0.0-11.9) mg/dL Protein/Creatinin Ratio (<150.0) mg/g Blood Type Gel Antibody Screen Crossmatch Med Orders - Current: Current Medications Acetaminophen (Tylenol) 650 mg PO Q4H PRN PRN Reason: Pain (Mild 1-3) and fever Carboprost Tromethamine (Hemabate Ds) 250 mcg IM ASDIRECTED PRN PRN Reason: HEMORRHAGE Last Admin: 05/13/20 12:57 Dose: 250 mcg Documented by: Diphenhydramine HCl (Benadryl) 25 mg IVPUSH Q6H PRN PRN Reason: Itching or Nausea Docusate Sodium (Colace) 100 mg PO Q12H PRN PRN Reason: Constipation Ephedrine Sulfate (Ephedrine Sulfate) 5 mg IVPUSH Q5M PRN PRN Reason: See Label Comments Hydroxyzine HCl (Atarax) 50 mg PO Q8H PRN PRN Reason: Pain Last Admin: 05/12/20 21:38 Dose: 50 mg Documented by: Oxytocin/Sodium Chloride (Pitocin In Ns 30 Unit/500 Ml) 30 unit in 500 mls @ 2 mls/hr IV TITRATE JESI; Protocol Last Titration: 05/13/20 03:18 Dose: 20 munits/min, 20 mls/hr Documented by: Penicillin G Potassium 3 (millunits/ Sodium Chloride) 100 mls @ 200 mls/hr IV Q4H JESI Last Admin: 05/13/20 05:46 Dose: 200 mls/hr Documented by: Lactated Ringer's (Ringers, Lactated) 1,000 mls @ 125 mls/hr IV ASDIRECTED JESI Last Admin: 05/13/20 11:30 Dose: 125 mls/hr Documented by: Tranexamic Acid 1,000 mg/ (Sodium Chloride) 110 mls @ 660 mls/hr IV ONETIME PRN PRN Reason: Bleeding Last Admin: 05/13/20 11:20 Dose: 660 mls/hr Documented by: Oxytocin/Sodium Chloride (Pitocin In Ns 30 Unit/500 Ml) 30 unit in 500 mls @ 2 mls/hr IV TITRATE JESI; Protocol Last Admin: 05/13/20 10:01 Dose: 125 munits/min, 125 mls/hr Documented by: Sodium Chloride (Normal Saline) 1,000 mls @ 500 mls/hr IV .BOLUS JESI Lactated Ringer's (Ringers, Lactated) 500 mls @ 999 mls/hr IV SEECOMMENT JESI Lactated Ringer's (Ringers, Lactated) 500 mls @ 999 mls/hr IV .BOLUS [facility] Lactated Ringer's (Ringers, Lactated) 1,000 mls @ 125 mls/hr IV ASDIRECTED [facility] Ibuprofen (Motrin) 800 mg PO Q8H PRN PRN Reason: mild pain or fever Ketorolac Tromethamine (Toradol) 15 mg IVPUSH Q6H [facility] Stop: 05/14/20 03:31 Lidocaine HCl (Xylocaine-Mpf 1%) 30 ml INJECT ASDIRECTED PRN PRN Reason: Perineal Repair Methylergonovine Maleate (Methergine) 0.2 mg IM ASDIRECTED PRN PRN Reason: Hemorrhage Last Admin: 05/13/20 12:58 Dose: 0.2 mg Documented by: Methylergonovine Maleate (Methergine) 0.2 mg IM ONETIME PRN PRN Reason: Excessive Vaginal Bleeding Misoprostol (Cytotec) 25 mcg VAG Q4H PRN PRN Reason: cervical ripening Last Admin: 05/12/20 12:40 Dose: 25 mcg Documented by: Misoprostol (Cytotec) 800 mcg RECTAL ASDIRECTED PRN PRN Reason: Hemorrhage Last Admin: 05/13/20 10:43 Dose: 800 mcg Documented by: Naloxone HCl (Narcan) 0.1 mg IVPUSH SEECOMMENT PRN PRN Reason: Respiratory Depression Ondansetron HCl (Zofran) 4 mg IVPUSH Q4H PRN PRN Reason: Nausea/Vomiting Last Admin: 05/13/20 03:10 Dose: 4 mg Documented by: Oxycodone/Acetaminophen (Percocet 325-5 Mg) 1 tab PO Q4H PRN PRN Reason: Pain (moderate 4-6) Oxycodone/Acetaminophen (Percocet 325-5 Mg) 2 tab PO Q4H PRN PRN Reason: Pain (moderate 4-6), use 2nd Prenat Multivit/Camp/Iron/Folic Ac ( Plus Iron) 1 each PO DAILY [facility] Promethazine HCl (Phenergan) 12.5 mg IM Q6H PRN PRN Reason: Nausea/Vomiting Last Admin: 05/13/20 04:51 Dose: 12.5 mg Documented by: Simethicone (Simethicone) 160 mg PO QID [facility] Sodium Chloride (Saline Flush) 10 ml FLUSH ASDIRECTED PRN PRN Reason: Keep Vein Open Discontinued Medications Acetaminophen (Tylenol) 650 mg PO Q4H PRN PRN Reason: Pain/Fever Citric Acid/Sodium Citrate (Bicitra Solution) 30 ml PO ONETIME ONE Stop: 05/13/20 09:01 Epinephrine HCl (Adrenalin) Confirm Administered Dose 1 mg .ROUTE .STK-MED ONE Stop: 05/12/20 22:58 Last Admin: 05/12/20 23:38 Dose: Not Given Documented by: Epinephrine HCl (Adrenalin) Confirm Administered Dose 1 mg .ROUTE .STK-MED ONE Stop: 05/13/20 03:23 Epinephrine HCl (Adrenalin) 0.1 mg .XX .STK-MED ONE Stop: 05/13/20 00:02 Epinephrine HCl (Adrenalin) 0.1 mg .XX .STK-MED ONE Stop: 05/13/20 03:21 Fentanyl (Sublimaze) Confirm Administered Dose 100 mcg .ROUTE .STK-MED ONE Stop: 05/12/20 22:57 Last Admin: 05/12/20 23:38 Dose: Not Given Documented by: Fentanyl (Sublimaze) Confirm Administered Dose 100 mcg .ROUTE .STK-MED ONE Stop: 05/13/20 03:23 Fentanyl (Sublimaze) 50 mcg IVPUSH ONETIME ONE Stop: 05/13/20 07:24 Last Admin: 05/13/20 07:23 Dose: 50 mcg Documented by: Fentanyl (Sublimaze) Confirm Administered Dose 100 mcg .ROUTE .STK-MED ONE Stop: 05/13/20 07:31 Fentanyl (Sublimaze) 25 mcg ITHECAL .STK-MED ONE Stop: 05/13/20 00:02 Fentanyl (Sublimaze) 25 mcg ITHECAL .STK-MED ONE Stop: 05/13/20 03:21 Lactated Ringer's (Ringers, Lactated) 1,000 mls @ 999 mls/hr IV ASDIRECTED JESI Penicillin G Potassium 5 (millunits/ Sodium Chloride) 100 mls @ 200 mls/hr IV ONETIME ONE Stop: 05/11/20 18:26 Last Admin: 05/11/20 18:36 Dose: Not Given Documented by: Penicillin G Potassium 5 (millunits/ Sodium Chloride) 100 mls @ 200 mls/hr IV ONETIME ONE Stop: 05/11/20 18:26 Last Admin: 05/11/20 18:28 Dose: 200 mls/hr Documented by: Penicillin G Potassium 3 (millunits/ Sodium Chloride) 100 mls @ 200 mls/hr IV Q4HR JESI Last Admin: 05/11/20 18:35 Dose: 200 mls/hr Documented by: Oxytocin/Sodium Chloride (Pitocin In Ns 30 Unit/500 Ml) Confirm Administered Dose 60 unit in 1,000 mls @ as directed .ROUTE .STK-MED ONE Stop: 05/13/20 08:43 Cefazolin Sodium/Dextrose (Ancef) Confirm Administered Dose 50 mls @ as directed .ROUTE .STK-MED ONE Stop: 05/13/20 08:43 Cefazolin Sodium/Dextrose 2 gm / Cefazolin Sodium/Dextrose 1 gm/ Premix 100 mls @ 133.333 mls/hr IV ONETIME ONE Stop: 05/13/20 09:44 Last Admin: 05/13/20 08:58 Dose: 133.333 mls/hr Documented by: Ketorolac Tromethamine (Toradol) 30 mg IVPUSH .STK-MED ONE Stop: 05/13/20 09:31 Misoprostol (Cytotec) Confirm Administered Dose 800 mcg .ROUTE .STK-MED ONE Stop: 05/13/20 09:33 Misoprostol (Cytotec) Confirm Administered Dose 800 mcg .ROUTE .STK-MED ONE Stop: 05/13/20 10:39 Ondansetron HCl (Zofran) 4 mg IVPUSH Q4H PRN PRN Reason: Nausea/Vomiting Ondansetron HCl (Zofran) 4 mg IV .STK-MED ONE Stop: 05/13/20 09:31 Sufentanil Citrate (Sufenta) Confirm Administered Dose 50 mcg .ROUTE .STK-MED ONE Stop: 05/12/20 22:58 Last Admin: 05/12/20 23:39 Dose: Not Given Documented by: Sufentanil Citrate (Sufenta) 20 mcg ITHECAL .STK-MED ONE Stop: 05/13/20 00:02 - Infant Interaction Support Person: Significant Other - Recovery Exam Fundal Tone: Firm Fundal Level: At Umbilicus Fundal Placement: Right Lochia Amount: Scant Lochia Color: Rubra/Red Perineum Description: Intact, Minimal Bruising/Swelling Episiotomy/Laceration: None Bladder Status: Indwelling Catheter in Place Urinary Elimination: Indwelling Catheter - Exam Quality Assessment: Supplemental Oxygen General: Alert, Oriented, Mild Distress HEENT: Pupils Equal, Pupils Reactive Neck: Supple Lungs: Clear to Auscultation, Normal Respiratory Effort. No: Decreased Breath Sounds Cardiovascular: Regular Rhythm, Tachycardia GI/Abdominal Exam: No Distention Extremities: Pedal Edema Skin: Dry, Cool Wound/Incisions: Dressing Dry and Intact. No: No Drainage Neurological: No New Focal Deficit - Problem List & Annotations (1) Gestational diabetes SNOMED Code(s): 40708278 Code(s): O24.419 - GESTATIONAL DIABETES MELLITUS IN , UNSP CONTROL Status: Acute (2) Rubella non-immune status, antepartum SNOMED Code(s): 618450868 Code(s): O99.89 - OTH DISEASES AND CONDITIONS COMPL PREG/CHLDBRTH; Z28.3 - UNDERIMMUNIZATION STATUS Status: Acute (3) Anemia affecting SNOMED Code(s): 53607908 Code(s): O99.019 - ANEMIA COMPLICATING , UNSPECIFIED TRIMESTER Status: Acute (4) Obesity affecting SNOMED Code(s): 181554759245, 923245841033 Code(s): O99.210 - OBESITY COMPLICATING , UNSPECIFIED TRIMESTER Status: Acute (5) Positive GBS test SNOMED Code(s): 142388509, 023720122 Code(s): B95.1 - STREPTOCOCCUS, GROUP B, CAUSING DISEASES CLASSD ELSWHR Status: Acute (6) Primigravida SNOMED Code(s): 522141011 Code(s): Z34.00 - ENCNTR FOR SUPRVSN OF NORMAL FIRST , UNSP TRIMESTER Status: Acute (7) hemorrhage SNOMED Code(s): 44854164 Code(s): O72.1 - OTHER IMMEDIATE HEMORRHAGE Status: Acute (8) Acute blood loss anemia SNOMED Code(s): 593025486 Code(s): D62 - ACUTE POSTHEMORRHAGIC ANEMIA Status: Acute (9) Hypotension SNOMED Code(s): 94293987 Code(s): I95.9 - HYPOTENSION, UNSPECIFIED Status: Acute (10) S/P primary low transverse SNOMED Code(s): 998916300, 27531714, 276887248, 662801459, 064708564 Code(s): Z98.891 - HISTORY OF UTERINE SCAR FROM PREVIOUS SURGERY Status: Acute (11) Failure to progress in second stage of labor SNOMED Code(s): 754219829 Code(s): O62.2 - OTHER UTERINE INERTIA Status: Acute (12) Severe pre-eclampsia SNOMED Code(s): 08124088 Code(s): O14.10 - SEVERE PRE-ECLAMPSIA, UNSPECIFIED TRIMESTER Status: Acute (13) Oliguria SNOMED Code(s): 01743799 Code(s): R34 - ANURIA AND OLIGURIA Status: Acute (14) Tachycardia SNOMED Code(s): 5686184 Code(s): R00.0 - TACHYCARDIA, UNSPECIFIED Status: Acute - Problem List Review Problem List Initiated/Reviewed/Updated: Yes - My Orders Last 24 Hours: My Active Orders 05/12/20 20:20 Naloxone [Narcan] 0.1 mg IVPUSH SEECOMMENT PRN Ondansetron [Zofran] 4 mg IVPUSH Q4H PRN Promethazine [Phenergan] 12.5 mg IM Q6H PRN ePHEDrine [ePHEDrine sulfate] 5 mg IVPUSH Q5M PRN 05/12/20 20:21 Communication Order [RC] PER UNIT ROUTINE Communication Order [RC] PER UNIT ROUTINE Communication Order [RC] PER UNIT ROUTINE Up With Assistance [RC] ASDIRECTED Blood Pressure [OM.PC] Routine 05/12/20 20:30 Lactated Ringers [Ringers, Lactated] 500 ml IV .BOLUS Lactated Ringers [Ringers, Lactated] 500 ml IV SEECOMMENT Sodium Chloride 0.9% [Normal Saline] 1,000 ml IV .BOLUS 05/12/20 22:10 Nitrous Oxide Delivery [RC] ASDIRECTED OB Discontinue Nitrous Oxide [RC] ASDIRECTED 05/13/20 04:58 Urinary Catheter Assessment [RC] ASDIRECTED 05/13/20 05:00 Insert Juarez Catheter [Insert Urinary Catheter] [OM.PC] Q24H 05/13/20 11:55 Blood Transfusion Reflex Orders [OM.PC] Routine Transfuse Red Blood Cells [COMM] Stat 05/13/20 11:56 Verify Patient Consent Obtain [RC] ASDIRECTED 05/13/20 13:02 Ready for Discharge [RC] PER UNIT ROUTINE - Plan Plan:: Patient discharged to [facility] in [place], [place]. Dr. Hernandez is the accepting physician. Patient was stable on discharge with blood pressures 100s/70s. Second unit of blood transfusing. Urine output still minimal. Corry Macias MD
[2020-05-14] MEDS ORDERED: Prenatal Multivitamin with Calcium/Folic Acid/Iron Tab PO SCH (09:00)
[2020-05-14] MEDS ORDERED: Ibuprofen 800 MG Tab PO PRN (11:30)
== END 2020-05-13 13:20 | DRG 787 ==
LOC: DL.OB 08:15 → UNDOADMOB 08:15 → DL.OB 08:19 → OBSVTOIN 05-13 09:24
PROVIDERS: ADMIT Family Medicine; ATTEND Family Medicine
PROC: 10D00Z1 Extraction of Products of Conception, Low, Open Approach (ICD-10-PCS; principal; 2020-05-13)
PROC: 3E0P7VZ Introduction of Hormone into Female Reproductive, Via Natural or Artificial Opening (ICD-10-PCS; 2020-05-13)
PROC: 3E0R3BZ Introduction of Anesthetic Agent into Spinal Canal, Percutaneous Approach (ICD-10-PCS; 2020-05-13)
PROC: 30233N1 Transfusion of Nonautologous Red Blood Cells into Peripheral Vein, Percutaneous Approach (ICD-10-PCS; 2020-05-13)
DX: O24.425 Gestational diabetes mellitus in childbirth, controlled by oral hypoglycemic drugs (principal); O72.1 Other immediate postpartum hemorrhage; O99.824 Streptococcus B carrier state complicating childbirth; O14.14 Severe pre-eclampsia complicating childbirth; O99.214 Obesity complicating childbirth; E66.9 Obesity, unspecified; Z37.0 Single live birth; Z3A.39 39 weeks gestation of pregnancy; Z79.84 Long term (current) use of oral hypoglycemic drugs; O99.02 Anemia complicating childbirth; D64.9 Anemia, unspecified; Z20.828 Contact with and (suspected) exposure to other viral communicable diseases
CPT/HCPCS: 01961; 01967; 36415; 36430; 51702; 59409; 80048; 82565; 82570; 82962; 83615; 84156; 84450; 84460; 84520; 84550; 85027; 86780; 86850; 86900; 86901; 86920; 86922; A9270-GY; J0171; J0690; J1885; J2210; J2405; J2540; J2550; J2590; J3010; J7050; J7120; P9016; U0002

== ENCOUNTER 2021-02-06 23:51 | Emergency (ER) | payer MEDICAID ==
--- NOTE | 2021-02-07 | EDM.PDOC ---
ED HPI GENERAL MEDICAL PROBLEM - General Stated Complaint: STOMACH PAINS Time Seen by Provider: 02/07/21 00:00 Source of Information: Reports: Patient, RN, RN Notes Reviewed History Limitations: Reports: No Limitations - History of Present Illness INITIAL COMMENTS - FREE TEXT/NARRATIVE: Patient is a 20-year-old female who presents to ER with complaint of epigastric cramping. She states the pain began approximately 3 PM today. She states she has had 3 bowel movements today with 2 of them being loose since the cramping began. Denies any nausea or vomiting, denies any fever chills. Denies any urinary symptoms such as frequency, urgency, burning with urination. Denies any history of stomach or bowel issues. Patient states the pain feels as though it has when she has had the stomach flu in the past. Patient denies any abdominal surgeries, states she still has her gall bladder and appendix. Onset: Today, Sudden Upper Epigastric Pain Score (Numeric/FACES): 6 - Related Data Allergies Allergy/AdvReac Type Severity Reaction Status Date / Time No Known Allergies Allergy Verified 05/11/20 08:40 Home Meds: Home Meds Ferrous Sulfate 325 mg PO DAILY 03/29/20 [History] Vit with Ca/FA/Iron [ Plus Iron] 1 tab PO DAILY 03/29/20 [History] metFORMIN [Glucophage] 1,000 mg PO BIDMEALS 03/29/20 [History] Past Medical History - Past Health History Medical/Surgical History: Denies Medical/Surgical History HEENT History: Reports: None Other HEENT History: tonsillectomy and adenoidectomy Cardiovascular History: Reports: None Respiratory History: Reports: Asthma Gastrointestinal History: Reports: None Genitourinary History: Reports: None 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 REPRESENTATIVE History: Left ovarian torsion and oophorectomy Musculoskeletal History: Reports: None Neurological History: Reports: None Psychiatric History: Reports: None Endocrine/Metabolic History: Reports: None, Obesity/BMI 30+ Hematologic History: Reports: Anemia Immunologic History: Reports: None Oncologic (Cancer) History: Reports: None Dermatologic History: Reports: None - Infectious Disease History Infectious Disease History: Reports: None - Past Surgical History HEENT Surgical History: Reports: Adenoidectomy, Tonsillectomy Cardiovascular Surgical History: Reports: None GI Surgical History: Reports: None Female Surgical History: Reports: Oophorectomy Other Female Surgeries/Procedures: left oophorectomy Oncologic Surgical History: Reports: None Social & Family History - Family History Family Medical History: No Pertinent Family History Cardiac: Reports: Hypertension Endocrine/Metabolic: Reports: Diabetes, type II - Caffeine Use Caffeine Use: Reports: Soda ED ROS GENERAL - Review of Systems Review Of Systems: Comprehensive ROS is negative, except as noted in HPI. ED EXAM, GI/ABD - Physical Exam Exam: See Below Exam Limited By: No Limitations General Appearance: Alert, WD/WN, No Apparent Distress, Obese Eyes: Bilateral: Normal Appearance, EOMI Ears: Normal External Exam, Hearing Grossly Normal Nose: Normal Inspection Throat/Mouth: Normal Inspection, Normal Voice, No Airway Compromise Head: Atraumatic, Normocephalic Neck: Normal Inspection, Supple, Non-Tender, Full Range of Motion Respiratory/Chest: No Respiratory Distress, Lungs Clear, Normal Breath Sounds, No Accessory Muscle Use, Chest Non-Tender Cardiovascular: Normal Peripheral Pulses, Regular Rate, Rhythm, No Edema, No Gallop, No JVD, No Murmur, No Rub GI/Abdominal Exam: Normal Bowel Sounds, Soft, No Organomegaly, No Distention, No Abnormal Bruit, Tender (epigastric) (Female) Exam: Deferred Rectal (Female) Exam: Deferred Back Exam: Normal Inspection, Full Range of Motion, NT Extremities: Normal Inspection, Normal Range of Motion, Non-Tender, Normal Capillary Refill, No Pedal Edema Neurological: Alert, Oriented, CN II-XII Intact, Normal Cognition, Normal Gait, Normal Reflexes, No Motor/Sensory Deficits Psychiatric: Normal Affect, Normal Mood Skin Exam: Warm, Dry, Intact, Normal Color, No Rash Lymphatic: No Adenopathy Course - Vital Signs Last Recorded V/S: Last Vital Signs Temp 98 F 02/07/21 00:08 Pulse 92 02/07/21 00:08 Resp 20 02/07/21 00:08 BP 141/87 H 02/07/21 00:08 Pulse Ox 99 02/07/21 00:08 - Orders/Labs/Meds Labs: Laboratory Tests 02/07/21 02/07/21 02/07/21 Range/Units 00:00 00:00 00:24 WBC 14.0 H (5.0-10.0) 10^3/uL RBC 5.82 H (4.2-5.4) 10^6/uL Hgb 13.9 D (12.0-16.0) g/dL Hct 42.8 (37.0-47.0) % MCV 73.5 L D (80-100) fL MCH 23.9 L (27.0-34.0) pg MCHC 32.5 L (33.0-35.0) g/dL Plt Count 327 (150-450) 10^3/uL Neut % (Auto) 70.3 (42.2-75.2) % Lymph % (Auto) 22.3 (20.5-50.1) % [place] % (Auto) 5.8 (2-8) % Eos % (Auto) 1.4 (1.0-3.0) % Baso % (Auto) 0.2 (0.0-1.0) % Sodium (136-145) mmol/L Potassium (3.5-5.1) mmol/L Chloride (98-107) mmol/L Carbon Dioxide (21-32) mmol/L Anion Gap (7-13) mEq/L BUN (7-18) mg/dL Creatinine (0.55-1.02) mg/dL Est Cr Clr Drug Dosing mL/min Estimated GFR (MDRD) BUN/Creatinine Ratio (No establ ref range) Glucose (70-99) mg/dL Calcium (8.5-10.1) mg/dL Total Bilirubin (0.2-1.0) mg/dL AST (15-37) U/L ALT (14-59) U/L Alkaline Phosphatase (46-116) U/L Total Protein (6.4-8.2) g/dL Albumin (3.4-5.0) g/dL Globulin Albumin/Globulin Ratio Urine Color Yellow (YELLOW) Urine Appearance Clear (CLEAR) Urine pH 5.0 (5.0-9.0) Ur Specific [place] 1.025 (1.005-1.030) Urine Protein Negative (NEGATIVE) Urine Glucose (UA) 500 H (NEGATIVE) Urine Ketones Negative (NEGATIVE) Urine Occult Blood Negative (NEGATIVE) Urine Nitrite Negative (NEGATIVE) Urine Bilirubin Negative (NEGATIVE) Urine Urobilinogen 0.2 (0.2-1.0) mg/dL Ur Leukocyte Esterase Negative (NEGATIVE) Urine HCG, Qual Negative 02/07/21 Range/Units 00:24 WBC (5.0-10.0) 10^3/uL RBC (4.2-5.4) 10^6/uL Hgb (12.0-16.0) g/dL Hct (37.0-47.0) % MCV (80-100) fL MCH (27.0-34.0) pg MCHC (33.0-35.0) g/dL Plt Count (150-450) 10^3/uL Neut % (Auto) (42.2-75.2) % Lymph % (Auto) (20.5-50.1) % [place] % (Auto) (2-8) % Eos % (Auto) (1.0-3.0) % Baso % (Auto) (0.0-1.0) % Sodium 136 (136-145) mmol/L Potassium 3.9 (3.5-5.1) mmol/L Chloride 100 (98-107) mmol/L Carbon Dioxide 27 (21-32) mmol/L Anion Gap 12.9 (7-13) mEq/L BUN 8 (7-18) mg/dL Creatinine 0.73 (0.55-1.02) mg/dL Est Cr Clr Drug Dosing 99.99 mL/min Estimated GFR (MDRD) > 60 BUN/Creatinine Ratio 11.0 (No establ ref range) Glucose 293 H (70-99) mg/dL Calcium 8.9 (8.5-10.1) mg/dL Total Bilirubin 0.7 (0.2-1.0) mg/dL AST 21 (15-37) U/L ALT 53 (14-59) U/L Alkaline Phosphatase 98 (46-116) U/L Total Protein 7.4 (6.4-8.2) g/dL Albumin 3.6 (3.4-5.0) g/dL Globulin 3.8 Albumin/Globulin Ratio 0.9 Urine Color (YELLOW) Urine Appearance (CLEAR) Urine pH (5.0-9.0) Ur Specific [place] (1.005-1.030) Urine Protein (NEGATIVE) Urine Glucose (UA) (NEGATIVE) Urine Ketones (NEGATIVE) Urine Occult Blood (NEGATIVE) Urine Nitrite (NEGATIVE) Urine Bilirubin (NEGATIVE) Urine Urobilinogen (0.2-1.0) mg/dL Ur Leukocyte Esterase (NEGATIVE) Urine HCG, Qual Meds: Medications Discontinued Medications Generic Name Dose Route Start Last Admin Trade Name Amy PRN Reason Stop Dose Admin Dicyclomine HCl 20 mg 02/07/21 00:10 02/07/21 00:20 Dicyclomine 20 Mg/2 Ml Sdv IM 02/07/21 00:11 20 mg ONETIME ONE Administration Ondansetron HCl 4 mg 02/07/21 00:57 02/07/21 01:00 Ondansetron 4 Mg Tab.Dis PO 02/07/21 00:58 4 mg ONETIME ONE Administration - Re-Assessments/Exams Free Text/Narrative Re-Assessment/Exam: 02/07/21 00:58 White blood count elevated at 14.0, no shift in neutrophils or lymphocytes Departure - Departure Time of Disposition: 01:13 Disposition: Home, Self-Care 01 Condition: Good Clinical Impression: Diarrhea, Abdominal cramps, Gastroenteritis - Discharge Information *PRESCRIPTION DRUG MONITORING PROGRAM REVIEWED*: No *COPY OF PRESCRIPTION DRUG MONITORING REPORT IN PATIENT RICCO: No Instructions: Food Choices to Help Relieve Diarrhea, Adult, Abdominal Pain, Adult, [id number] Forms: ED Department Discharge Sepsis Event Note (ED) - Focused Exam Vital Signs: Vital Signs Temp Pulse Resp BP Pulse Ox 02/07/21 00:08 98 F 92 20 141/87 H 99
[2021-02-07] MEDS ORDERED: Dicyclomine 20 MG/2 ML SDV IM ONE (00:10)
[2021-02-07 00:12] VITALS: BP 141/87; PULSE 92
[2021-02-07 00:48] LABS: ANION GAP 12.9 mEq/L (7-13); CHLORIDE,CL 100 mmol/L (98-107); SODIUM,NA 136 mmol/L (136-145)
[2021-02-07] MEDS ORDERED: Ondansetron 4 MG Tab.DIS PO ONE (00:57)
== END 2021-02-07 02:09 | disposition home or self-care (01) ==
LOC: DL.ED 23:51
DX: K52.9 Noninfective gastroenteritis and colitis, unspecified (principal); R10.13 Epigastric pain; E66.9 Obesity, unspecified; J45.909 Unspecified asthma, uncomplicated; Z68.43 Body mass index [BMI] 50.0-59.9, adult
CPT/HCPCS: 36415; 80053; 81003; 81025; 85025; 96372; 99283; 99284; A9270; J0500

== ENCOUNTER 2021-07-31 07:51 | Emergency (ER) | payer MEDICAID ==
[2021-07-31 08:11] VITALS: BP 127/70; PULSE 99
--- NOTE | 2021-07-31 08:35 | EDM.PDOC ---
ED HPI GENERAL MEDICAL PROBLEM - General Chief Complaint: ENT Problem Stated Complaint: EAR ACHE Time Seen by Provider: 07/31/21 08:15 Source of Information: Reports: [facility] Records History Limitations: Reports: No Limitations - History of Present Illness INITIAL COMMENTS - FREE TEXT/NARRATIVE: This 21 yo female patient reports to the ED with bilateral ear pain (feels like her "ears are plugged"), a sore throat and head congestion. The patient reports her symptoms have been present for 2 days. The patient has not taken anything for temporary symptom relief. Duration: Day(s):, Constant Location: Reports: Head, Face Quality: Reports: Other Severity: Moderate Improves with: Reports: None Worsens with: Reports: None Context: Reports: Other Associated Symptoms: Reports: Other Bilateral Ear Pain Score (Numeric/FACES): 2 - Related Data Allergies Allergy/AdvReac Type Severity Reaction Status Date / Time No Known Allergies Allergy Verified 07/31/21 08:04 Home Meds: Home Meds Ferrous Sulfate 325 mg PO DAILY 03/29/20 [History] Vit with Ca/FA/Iron [ Plus Iron] 1 tab PO DAILY 03/29/20 [History] metFORMIN [Glucophage] 1,000 mg PO BIDMEALS 03/29/20 [History] Past Medical History - Past Health History Medical/Surgical History: Denies Medical/Surgical History HEENT History: Reports: None Other HEENT History: tonsillectomy and adenoidectomy Cardiovascular History: Reports: None Respiratory History: Reports: Asthma Gastrointestinal History: Reports: None Genitourinary History: Reports: None 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 History: Left ovarian torsion and oophorectomy Musculoskeletal History: Reports: None Neurological History: Reports: None Psychiatric History: Reports: None Endocrine/Metabolic History: Reports: Obesity/BMI 30+ Hematologic History: Reports: Anemia Immunologic History: Reports: None Oncologic (Cancer) History: Reports: None Dermatologic History: Reports: None - Infectious Disease History Infectious Disease History: Reports: None - Past Surgical History Head Surgeries/Procedures: Reports: None HEENT Surgical History: Reports: Adenoidectomy, Tonsillectomy Cardiovascular Surgical History: Reports: None GI Surgical History: Reports: None Female Surgical History: Reports: Oophorectomy Other Female Surgeries/Procedures: left oophorectomy Oncologic Surgical History: Reports: None Social & Family History - Family History Family Medical History: No Pertinent Family History Cardiac: Reports: Hypertension Endocrine/Metabolic: Reports: Diabetes, type II - Tobacco Use Tobacco Use Status *Q: Never Tobacco User - Caffeine Use Caffeine Use: Reports: Soda - Recreational Drug Use Recreational Drug Use: No ED ROS ENT - Review of Systems Review Of Systems: Comprehensive ROS is negative, except as noted in HPI. ED EXAM, ENT - Physical Exam Exam: See Below Exam Limited By: No Limitations General Appearance: Alert, WD/WN, No Apparent Distress, Obese Eye Exam: Bilateral Eye: EOMI, Normal Inspection, PERRL Ears: TM Fluid (with no erythema). No: TM Dullness, TM Erythema, TM Blood Nose: Normal Inspection, Normal Mucousa, No Blood, Clear Rhinorrhea Mouth/Throat: Normal Gums, Normal Lips, Normal Teeth, Pharyngeal Erythema (mild with no pustules) Head: Atraumatic, Normocephalic Neck: Normal Inspection, Supple, Non-Tender, Full Range of Motion Respiratory/Chest: No Respiratory Distress, Lungs Clear, Normal Breath Sounds, No Accessory Muscle Use, Chest Non-Tender Cardiovascular: Normal Peripheral Pulses, Regular Rate, Rhythm, No Edema, No Gallop, No JVD, No Murmur, No Rub GI/Abdominal: Normal Bowel Sounds, Soft, Non-Tender, No Organomegaly, No Distention, No Abnormal Bruit, No Mass (Female) Exam: Deferred Rectal (Female) Exam: Deferred Back: Normal Inspection, Full Range of Motion Extremities: Normal Inspection, Normal Range of Motion, Non-Tender, No Pedal Edema, Normal Capillary Refill Neurological: Alert, Oriented, CN II-XII Intact, Normal Cognition, Normal Gait, Normal Reflexes, No Motor/Sensory Deficits Psychiatric: Normal Affect, Normal Mood Skin: Warm, Dry, Intact, Normal Color, No Rash Lymphatic: No Adenopathy Course - Vital Signs Last Recorded V/S: Last Vital Signs Temp 97.4 F 07/31/21 08:08 Pulse 99 07/31/21 08:08 Resp 20 07/31/21 08:08 BP 127/70 07/31/21 08:08 Pulse Ox 98 07/31/21 08:08 - Orders/Labs/Meds Orders: Active Orders 24 hr Category Date Time Status CULTURE STREP A CONFIRMATION [RM] Stat Lab 07/31/21 08:20 Results STREP SCRN A RAPID W CULT CONF [RM] Stat Lab 07/31/21 08:20 Ordered Departure - Departure Time of Disposition: 08:47 Disposition: Home, Self-Care 01 Condition: Fair Clinical Impression: URI (upper respiratory infection) Qualifiers: URI type: unspecified viral URI Qualified Code(s): J06.9 - Acute upper respiratory infection, unspecified - Discharge Information *PRESCRIPTION DRUG MONITORING PROGRAM REVIEWED*: Not Applicable *COPY OF PRESCRIPTION DRUG MONITORING REPORT IN PATIENT RICCO: Not Applicable Instructions: Viral Respiratory Infection, [id number] Forms: ED Department Discharge Care Plan Goals: The patient was advised of the examination and lab results during the visit. The patient was encouraged to take over the counter medications as directed for temporary symptom relief. If the patient has any additional symptoms or concerns, the patient should either return to the emergency department or visit her primary care facility. Sepsis Event Note (ED) - Evaluation Sepsis Screening Result: No Definite Risk - Focused Exam Vital Signs: Vital Signs Temp Pulse Resp BP Pulse Ox 07/31/21 08:08 97.4 F 99 20 127/70 98 - My Orders Last 24 Hours: My Active Orders 07/31/21 08:20 CULTURE STREP A CONFIRMATION [RM] Stat STREP SCRN A RAPID W CULT CONF [RM] Stat - Assessment/Plan Last 24 Hours: My Active Orders 07/31/21 08:20 CULTURE STREP A CONFIRMATION [RM] Stat STREP SCRN A RAPID W CULT CONF [RM] Stat
== END 2021-07-31 08:53 | disposition home or self-care (01) ==
LOC: DL.ED 07:51
DX: J06.9 Acute upper respiratory infection, unspecified (principal); E66.9 Obesity, unspecified; Z68.43 Body mass index [BMI] 50.0-59.9, adult; Z79.84 Long term (current) use of oral hypoglycemic drugs
CPT/HCPCS: 87081; 87430; 99283

== ENCOUNTER 2021-08-12 20:30 | Emergency (ER) | payer MEDICAID | END 2021-08-12 21:21 | disposition left against medical advice (07) | LOC: DL.ED 20:30 | DX: Z53.21 Procedure and treatment not carried out due to patient leaving prior to being seen by health care provider (principal) ==

== ENCOUNTER 2022-04-24 21:13 | Emergency (ER) | payer MEDICAID ==
[2022-04-24] MEDS ORDERED: Cephalexin 500 MG Cap PO ONE (21:44)
[2022-04-24] MEDS ORDERED: Bacitracin Oint 1 GM U/D Packet TOP ONE (21:44)
[2022-04-24 21:46] VITALS: BP 140/95; PULSE 85
== END 2022-04-24 22:01 | disposition home or self-care (01) ==
LOC: DL.ED 21:13
DX: L60.0 Ingrowing nail (principal); F17.210 Nicotine dependence, cigarettes, uncomplicated; E66.9 Obesity, unspecified; Z68.43 Body mass index [BMI] 50.0-59.9, adult
CPT/HCPCS: 99283; A9270; 99282

== ENCOUNTER 2022-07-27 12:00 | Emergency (ER) | payer MEDICAID | END 2022-07-27 12:48 | disposition left against medical advice (07) | LOC: DL.ED 12:00 | DX: Z53.21 Procedure and treatment not carried out due to patient leaving prior to being seen by health care provider (principal) ==

== ENCOUNTER 2022-11-02 20:18 | Emergency (ER) | payer MEDICAID ==
[2022-11-02] MEDS ORDERED: Ondansetron 4 MG Tab.DIS PO ONE (20:19)
[2022-11-02] MEDS ORDERED: Sodium Chloride 0.9% 10 ML Syringe FLUSH PRN (20:32)
[2022-11-02] MEDS ORDERED: Ondansetron 4 MG/2 ML SDV IVPUSH ONE (20:36)
[2022-11-02] MEDS ORDERED: Sodium Chloride 0.9% 1,000 ML IV ONE (20:36)
[2022-11-02 21:02] LABS: ANION GAP 13.7 mEq/L (7-13); CHLORIDE,CL 102 mmol/L (98-107); ESTIMATED GFR 128 mL/min (>=60); SODIUM,NA 139 mmol/L (136-145)
[2022-11-02 21:03] VITALS: BP 138/99; PULSE 124
[2022-11-02] MEDS ORDERED: Iopamidol 612 MG/ML 100 ML Bottle IVPUSH ONE (21:18)
[2022-11-02] MEDS ORDERED: Ondansetron 4 MG Tab.DIS ONE (23:10)
== END 2022-11-02 23:14 | disposition home or self-care (01) ==
LOC: DL.ED 20:18
DX: R10.11 Right upper quadrant pain (principal); R11.14 Bilious vomiting; J45.909 Unspecified asthma, uncomplicated; E66.9 Obesity, unspecified; Z68.43 Body mass index [BMI] 50.0-59.9, adult
CPT/HCPCS: 36415; 74177; 80053; 81001; 81025; 82150; 83690; 85025; 96361; 96374; 99284; A9270; J2405; J3490; J7030; Q9967

== ENCOUNTER 2023-01-15 23:23 | Emergency (ER) | payer MEDICAID ==
[2023-01-15 23:40] VITALS: BP 130/94; PULSE 85
== END 2023-01-16 00:32 | disposition left against medical advice (07) ==
LOC: DL.ED 23:23
DX: Z53.21 Procedure and treatment not carried out due to patient leaving prior to being seen by health care provider (principal)